=== PATIENT | female | born 1960 | race African-American/Black ===

== ENCOUNTER 2016-12-24 12:51 | Emergency (ER) | payer MEDICAID ==
[~2016-12-24] VITALS: Ht 157.5 cm; Wt 108.9 kg
[~2016-12-24 12:51] MED LIST: ACETAMINOPHEN-1 EAC1 ORAL; ALBUTEROL SULF8.5 GM INH; ALBUTEROL2.5 MG/3 M INH; AMLODIPINE BESY10 MG ORAL; ASPIR 8181 MG ORAL; AZITHROMYCIN250 MG ORAL; BENAZEPRIL HCL40 MG ORAL; BENTYL10 MG ORAL; GABAPENTIN600 MG ORAL; GLUCOTROL10 MG ORAL; HYDROCHLOROTHIA25 MG ORAL; IBUPROFEN600 MG ORAL; LANTUS SOL100 UNIT/1 SUBQ; NAPROXEN500 M2 ORAL; ROBITUSSIN DM5 ML ORAL; TRUSOPT10 ML BOTH EYES; TURMERIC 450-51 EACH PO; VALIUM2 MG ORAL; [UNRECOGNIZED DRUG - SUPPLY]
--- NOTE | 2016-12-24 14:28 | Emergency Room Report ---
History of Present Illness General Chief Complaint: Flu Like Symptoms Source: Patient Present Illness HPI 56-year-old female presents to emergency Department complaining of productive cough with fevers and chills x2 weeks. Patient reports a history of bronchitis denies history of asthma, COPD or smoking history. Patient denies any compromise or other pertinent medical history. Patient denies recent travel she reports multiple ill contacts who were diagnosed with pneumonia. Patient is up-to-date with vaccinations. Denies CP, Palpitations, LOC, AMS, dizziness, Changes in Vision, Sensation, paresthesias, or a sudden severe headache. Allergies: Coded Allergies: No Known Allergies (Unverified , 11/23/15) Patient History Past Medical History: see triage record Past Surgical History: none Pertinent Family History: none Last Menstrual Period: 2003 Now: No Immunizations: UTD Reviewed Nursing Documentation: PMH: Agreed, PSxH: Agreed Nursing Documentation-PMH Past Medical History: No History, Except For Hx Hypertension: Yes Hx Pacemaker: No Hx Asthma: No Hx COPD: No Hx Diabetes: Yes Hx Cerebrovascular Accident: No Review of Systems All Other Systems: negative except mentioned in HPI Physical Exam Vital Signs Date Time Temp Pulse Resp B/P Pulse Ox O2 Delivery O2 Flow Rate FiO2 12/24/16 13:54 99.0 102 18 113/80 94 Room Air Sp02 EP Interpretation: reviewed, abnormal - pt. tachycardic at 102, and oxygenating at 94% General Appearance: no apparent distress, alert, GCS 15, non-toxic Head: normocephalic, atraumatic Eyes: bilateral eye PERRL, bilateral eye normal inspection ENT: hearing grossly normal, normal pharynx, no angioedema, normal voice Neck: full range of motion, supple/symm/no masses Respiratory: no rhonchi, no accessory muscle use, wheezing, other - pt. has difficult time speaking full sentences, audible wheezes, and mild respiratory effort noted. Cardiovascular #1: regular rate, rhythm, no edema, normal capillary refill, tachycardia - 102 BPM Gastrointestinal: normal bowel sounds, non tender, soft, no guarding, no rebound Rectal: deferred Genitourinary: normal inspection, no CVA tenderness Musculoskeletal: back normal, gait/station normal, normal range of motion, non- tender, no calf tenderness Neurologic: alert, oriented x3, responsive, motor strength/tone normal, sensory intact, speech normal Psychiatric: judgement/insight normal, memory normal, mood/affect normal, no suicidal/homicidal ideation Skin: normal color, no rash, warm/dry, well hydrated Lymphatic: no adenopathy Medical Decision Making PA Attestation Dr. Davenport is my supervising Physician whom patient management has been discussed with. Diagnostic Impression: Primary Impression: Atypical pneumonia ER Course 56-year-old female presents to emergency Department complaining of productive cough with fevers and chills x2 weeks. Patient reports a history of bronchitis denies history of asthma, COPD or smoking history. Patient denies any compromise or other pertinent medical history. Patient denies recent travel she reports multiple ill contacts who were diagnosed with pneumonia. Patient is up-to-date with vaccinations. Ddx considered but are not limited to URI, pneumonia, PE, strep pharyngitis, meningitis. Vital signs: Pt. is afebrile, the remaining VS are WNL, pt. mildly tachycardic. H&PE are most consistent with URI- suspicious for pneumonia due to ill contacts, will do breathing tx and cxr. ORDERS: -CXR: No consolidation, effusion, pneumothorax or acute cardiopulmonary findings per soft read in ED by Dr. Davenport. ED INTERVENTIONS: -Albuterol Nebulized tx. -Atrovent Nebulized. Significant improvement of breath sounds, oxygen saturation s/p nebs. no longer tachycardic. DISCHARGE: At this time pt. is stable for d/c to home. Will provide printed patient care instructions, and any necessary prescriptions. Care plan and follow up instructions have been discussed with the patient prior to discharge. Last Vital Signs Date Time Temp Pulse Resp B/P Pulse Ox O2 Delivery O2 Flow Rate FiO2 12/24/16 13:54 99.0 102 18 113/80 94 Room Air Disposition: HOME, SELF-CARE Condition: Stable Scripts Azithromycin* (ZITHROMAX*) 250 Mg Tablet 250 MG ORAL DAILY, #6 TAB 0 Refills Take two tables once daily for 1 day, then one tablet once daily for 4 days. Prov: Verena Kirk P.ASusan 12/24/16 Guaifenesin (Guaifenesin) 1,200 Mg Tab.er.12h 1200 MG PO BID for 10 Days, #20 TAB Prov: Verena Kirk P.ASusan 12/24/16 Albuterol Sulfate* (ALBUTEROL SULFATE MDI*) 8.5 Gm Hfa.aer.ad 2 PUFF INH Q4H, #1 INH 0 Refills Prov: Verena Kirk 12/24/16 Codeine/Promethazine Hcl* (PROMETHAZINE-CODEINE SYRUP*) 118 Ml Syrup 5 ML ORAL Q6H Y for For Cough, #118 ML 0 Refills Prov: Verena Kirk 12/24/16 Referrals: NOT CHOSEN IPA/,REFERRING (PCP) Patient Instructions: Acute Bronchitis, [id number] Additional Instructions: Take medications as directed. Follow up with PCP in 3-5 days Return sooner to ED if new symptoms occur, or current symptoms become worse. Do not drink alcohol, drive, or operate heavy machinery while taking Cough syrup as this may cause drowsiness. - Please note that this Emergency Department Report was dictated using [employer] communications engineer technology software, occasionally this can lead to erroneous entry secondary to interpretation by the dictation equipment. Verena Kirk Dec 24, 2016 14:28
[2016-12-24] MEDS ORDERED: Ipratropium 0.02% Inh Soln 2.5ml UD HHN ONE (14:30)
[2016-12-24] MEDS ORDERED: Albuterol ud Inhalation HHN ONE (14:30)
[2016-12-24 15:04] VITALS: BP 113/80
--- NOTE | 2016-12-24 15:09 | Diagnostic Imaging Report ---
Indication: Chest Pain Comparison: 10/22/16 A single view chest radiograph was obtained. Findings: No definite infiltrate or pulmonary vascular congestion identified. Surgical clips noted left of the trachea at the thoracic inlet. The heart is enlarged. The aorta is mildly enlarged consistent with atherosclerotic vascular disease. The bones are osteopenic. Impression: No acute disease
[2016-12-24] MEDS ORDERED: PROMETHAZINE-C118 M1 ORAL (15:20)
[2016-12-24] MEDS ORDERED: GUAIFENESIN1200 MG PO (15:20)
[2016-12-24] MEDS ORDERED: ALBUTEROL SULF8.5 GM INH (15:20)
[2016-12-24 15:34] VITALS: BP 113/80
[2016-12-24] MEDS ORDERED: ZITHROMAX250 MG ORAL (15:34)
== END 2016-12-24 15:35 | disposition home or self-care (01) ==
LOC: EMR 14:20
DX: J18.9 Pneumonia, unspecified organism (principal); I10 Essential (primary) hypertension; E11.9 Type 2 diabetes mellitus without complications
CPT/HCPCS: 71010; 94640; 94664; 99284

== ENCOUNTER 2019-09-20 21:51 | Emergency (ER) | payer MEDICAID ==
[~2019-09-20] VITALS: Ht 157.5 cm; Wt 113.4 kg
[~2019-09-20 21:51] MED LIST changes: +GUAIFENESIN1200 MG PO; +PROMETHAZINE-C118 M1 ORAL; +ZITHROMAX250 MG ORAL
[2019-09-20] MEDS ORDERED: GLUCOPHAGE1000 MG ORAL (22:01)
[2019-09-20] MEDS ORDERED: LEVOXYL137 MCG ORAL (22:01)
[2019-09-20] MEDS ORDERED: MELOXICAM15 MG PO (22:01)
[2019-09-20] MEDS ORDERED: BENAZEPRIL HCL5 MG ORAL (22:01)
[2019-09-20 22:20] VITALS: BP 150/96
--- NOTE | 2019-09-20 22:20 | NUR ---
ER Nurse Note: Pt walked in c/o RT sided body pain s/p fall. Pt stated her RT knee and shoulder has the most pain, 10/10 pain. Pt stated she has a history of falls and bilateral knee surgery in the past. Pt denies head trauma; skin intact, RA. Will continue to montior .
--- NOTE | 2019-09-20 22:28 | Emergency Room Report ---
History of Present Illness General Chief Complaint: Pain Source: Patient, Medical Record Present Illness HPI Disclaimer: Please note that this report is being documented using [employer] technology. This can lead to erroneous entry secondary to incorrect interpretation by the dictating instrument. HPI: 59-year-old female with a history of bilateral knee replacements, hypertension, hyperlipidemia, diabetes presents for evaluation of right-sided knee and shoulder pain after a fall. The patient states that she has had instability in the right knee for several months now. She is being evaluated by her PMD who is sending her for an outpatient MRI has been giving her lidocaine patches and meloxicam for pain management. She ambulates with a cane. She had a slip after her knee buckled today but did not strike her head. She notes pain in the right shoulder, some of which has been chronic but was acutely worsened today by the fall. Denies any numbness or tingling in the leg or the arm. Denies weakness. Notes worsening pain over the right knee as well without new swelling. Denies any new back pain, chest pain, abdominal pain. Does not take blood thinners. PMH: Hypothyroidism, hypertension, hyperlipidemia, obesity, diabetes PSH: Total bilateral knee replacements, cervical spine fusion, thyroidectomy, hysterectomy, multiple hernia repairs Allergies: Denies Social Hx: Regular tobacco use, denies alcohol or drug use Allergies: Coded Allergies: No Known Allergies (Unverified , 11/23/15) Nursing Documentation-PMH Past Medical History: No History, Except For Hx Hypertension: Yes Hx Pacemaker: No Hx Asthma: No Hx COPD: No Hx Diabetes: Yes Hx Cerebrovascular Accident: No Review of Systems All Other Systems: negative except mentioned in HPI Physical Exam Vital Signs Date Time Temp Pulse Resp B/P (MAP) Pulse Ox O2 Delivery O2 Flow Rate FiO2 09/20/19 21:54 98.1 77 18 150/96 (114) 93 Room Air General: Awake and alert, no acute distress HEENT: NC/AT. EOMI. Chest Wall: No tenderness, no deformity Cardiovascular: RRR. S1 and S2 normal. No murmur appreciated Resp: Normal work of breathing. No cough, wheezing or crackles appreciated Abdomen: Abdomen is soft, nondistended. Nontender Skin: Intact. No abrasions, laceration or rash over the exposed skin MSK: Normal tone and bulk. Moving all extremities. No obvious deformity. There is tenderness on active and passive range of motion testing in the right upper extremity with abduction greater than 90 degrees though able to tolerate internal/external rotation as well as flexion extension pronation and supination in the elbow. No obvious deformity. No clinical signs of dislocation. The right knee is tender over the patella but patella is in anatomic position. No significant effusion. Neuro: Awake and alert. Mentating appropriately. Back/Spine: No midline tenderness in the cervical spine. Medical Decision Making Diagnostic Impression: Primary Impression: Contusion Additional Impressions: Knee contusion Recurrent knee instability ER Course 59-year-old female presents for evaluation of right-sided knee and shoulder pain after a fall earlier today. She has been having some instability in the right prosthetic knee for several months now and has scheduled an MRI as an outpatient. We will obtain x-rays of the right shoulder and right knee to rule out periprosthetic fracture and possible fracture dislocation in the shoulder however clinically I have low suspicion. Will treat pain with Toradol and lidocaine patch. Can follow-up as an outpatient if there are no acute findings on imaging. Other X-Ray Diagnostic Results Other X-Ray Diagnostic Results #1: X-Ray ordered: Right knee # of Views/Limited Vs Complete: Complete Indication: Pain EP Interpretation: Yes Interpretation: no dislocation, no soft tissue swelling, no fractures, other - Total prosthetic knee, no periprosthetic fracture Impression: Other - No periprosthetic fracture, hardware appears in appropriate position Electronically Signed by: Electronically signed by Dr. Ernst Alas Other X-Ray Diagnostic Results #2: X-Ray ordered: Right shoulder # of Views/Limited Vs Complete: 3 View Indication: Pain EP Interpretation: Yes Interpretation: no dislocation, no soft tissue swelling, no fractures, other - Osteoarthritic changes Impression: No acute disease Electronically Signed by: Electronically signed by Dr. Ernst Alas Reevaluation Time: 00:41 Last Vital Signs Date Time Temp Pulse Resp B/P (MAP) Pulse Ox O2 Delivery O2 Flow Rate FiO2 09/20/19 21:54 98.1 77 18 150/96 (114) 93 Room Air Reevaluation Impression Preliminary read by the radiologist shows a questionable ligamentous injury/ remote avulsion fracture but no evidence of acute fracture dislocation or periprosthetic injury. There is also a questionable right sided hilar enlargement which can be followed up as an outpatient. Patient states she has a history of obstructive sleep apnea and pulmonary hypertension may be a consequence of GERBER. Patient was given copies of her imaging to discuss with her PMD. She will be discharged to continue using her medication as prescribed. She should follow-up with her PMD to discuss emergency department visit. Discussed reasons to return to the emergency department as well. She understands and agrees with this treatment plan. Disposition: HOME, SELF-CARE Condition: Stable Ernst Alas MD Sep 20, 2019 22:28
[2019-09-20] MEDS ORDERED: Ketorolac 30mg Inj IM ONE (22:30)
--- NOTE | 2019-09-20 23:17 | NUR ---
ER Nurse Note: All orders completed per ERMD orders; pt states pain is decreased but still there. Lido patch on RT shoulder.
--- NOTE | 2019-09-21 00:18 | Diagnostic Imaging Report ---
Indication: Right shoulder pain COMPARISON: None Findings: 3 views of the right shoulder were obtained. No acute fracture or malalignment identified. There is evidence of osteoarthritis with glenohumeral joint osteophyte formation. Small 2 mm ossific density in the area of the superior glenoid nonspecific. IMPRESSION: No acute injury.
--- NOTE | 2019-09-21 00:26 | Diagnostic Imaging Report ---
Indication: Right knee Pain 3 views of the right knee were obtained. Findings: No acute fracture, malalignment, or joint effusion are identified. Total knee arthroplasty noted. Bones are osteopenic. Impression: Negative for acute findings.
[2019-09-21 00:32] VITALS: BP 146/88
--- NOTE | 2019-09-21 00:33 | NUR ---
ER Nurse Note: Pt asleep, no signs of pain and discomfort. Awaiting further orders. All safety measures met; will continue to monitor.
[2019-09-21 00:55] VITALS: BP 146/88
--- NOTE | 2019-09-21 00:55 | NUR ---
ER Nurse Note: Pt seen, treated, cleared to be discharged per ERMD. Dicharge instructions given with repeat verbalization by pt. Encouraged pt follow up with primary care doctor within one week. Pt is aox4, on room air, with stable vital signs. id band and iv site removed without complications. pt is able to ambulate with steady gait. pt took all belongings.
== END 2019-09-21 00:55 | disposition home or self-care (01) ==
LOC: EMR 22:30
DX: S80.01XA Contusion of right knee, initial encounter (principal); I10 Essential (primary) hypertension; E11.9 Type 2 diabetes mellitus without complications; E03.9 Hypothyroidism, unspecified; E78.5 Hyperlipidemia, unspecified; W01.0XXA Fall on same level from slipping, tripping and stumbling without subsequent striking against object, initial encounter; Y93.9 Activity, unspecified; Y92.9 Unspecified place or not applicable; Z96.653 Presence of artificial knee joint, bilateral; Z90.710 Acquired absence of both cervix and uterus; Z98.890 Other specified postprocedural states
CPT/HCPCS: 73030; 73562; 96372; J1885; Z7502; 99284

== ENCOUNTER 2020-05-30 14:07 | Emergency (ER) | payer MEDICAID ==
[~2020-05-30] VITALS: Ht 157.5 cm; Wt 257.2 kg
[~2020-05-30 14:07] MED LIST changes: +BENAZEPRIL HCL5 MG ORAL; +GLUCOPHAGE1000 MG ORAL; +LEVOXYL137 MCG ORAL; +MELOXICAM15 MG PO
[2020-05-30 15:05] VITALS: BP 149/88
[2020-05-30] MEDS ORDERED: HYDROcodone/Acetamin 5/325 tab ORAL ONE (15:15)
--- NOTE | 2020-05-30 15:23 | Emergency Room Report ---
History of Present Illness General Chief Complaint: Pain Source: Patient Present Illness HPI 60-year-old female presents to the emergency department with 2 complaints. The first being 10 out of 10 severity pain to the left fourth toe x1 week. Patient states she is not sure whether or not she had any trauma as she has history of neuropathy. Patient reports swelling and bruising. She denies warmth or notable open wounds. Patient reports pain is exacerbated upon palpation and weightbearing. Patient is also complaining of 6 out of 10 severity left shoulder pain with acute onset since yesterday. Patient reports she was reaching behind her back when she felt a pop in her left shoulder and had acute onset of pain. Patient denies muscular weakness in that extremity however she reports pain with lifting her arm or palpation of the left shoulder. Patient reports history of rotator cuff and tendon injury which did require surgical intervention as well as non-cancerous mass removal from the left axilla and breast. Patient reports history of diabetes. She denies fevers or chills. Patient denies paresthesias in the upper extremities. No other aggravating or relieving factors at this time. She denies midline neck or back pain. Allergies: Coded Allergies: No Known Allergies (Unverified , 11/23/15) COVID-19 Screening Contact w/high risk pt: No Experienced COVID-19 symptoms?: No COVID-19 Testing performed WAFER SLICER: No Patient History Past Medical History: see triage record, DM Past Surgical History: other - mass removal, rotator cuff repair, tendon repair bilateral shoulders. Pertinent Family History: none Last Menstrual Period: na Reviewed Nursing Documentation: PMH: Agreed; PSxH: Agreed Nursing Documentation-PMH Past Medical History: No History, Except For Hx Hypertension: Yes Hx Pacemaker: No Hx Asthma: No Hx COPD: No Hx Diabetes: Yes Hx Cerebrovascular Accident: No Review of Systems All Other Systems: negative except mentioned in HPI Physical Exam Vital Signs Date Time Temp Pulse Resp B/P (MAP) Pulse Ox O2 Delivery O2 Flow Rate FiO2 05/30/20 14:33 98.8 73 17 157/100 (119) 98 Room Air Sp02 EP Interpretation: reviewed, normal General Appearance: no apparent distress, alert, GCS 15, non-toxic Head: normocephalic, atraumatic Eyes: bilateral eye normal inspection, bilateral eye PERRL ENT: hearing grossly normal, normal voice Neck: full range of motion Respiratory: lungs clear, normal breath sounds, speaking full sentences Cardiovascular #1: regular rate, rhythm Musculoskeletal: normal range of motion, gait/station normal, tender - Left shoulder posteriorly and along the AC joint. No clicking with ROM, pain with ROM , NVI. no obvious step-off, no cervical or midline spinal tenderness, swelling - Left 4th toe, bruising noted, no warmth, no obvious deformity. Tender on palpation. Neurologic: alert, motor strength/tone normal, oriented x3, sensory intact, responsive, speech normal Psychiatric: judgement/insight normal Skin: Ecchymosis/Bruising - left 4th Toe Medical Decision Making PA Attestation Dr. Elias is my supervising Physician whom patient management has been discussed with. Diagnostic Impression: Primary Impression: Toe fracture, left Qualified Codes: S92.912A - Unspecified fracture of left toe(s), initial encounter for closed fracture Additional Impression: Shoulder pain with history of repair of rotator cuff ER Course 60-year-old female presents to the emergency department with 2 complaints. The first being 10 out of 10 severity pain to the left fourth toe x1 week. Patient states she is not sure whether or not she had any trauma as she has history of neuropathy. Patient reports swelling and bruising. She denies warmth or notable open wounds. Patient reports pain is exacerbated upon palpation and weightbearing. Patient is also complaining of 6 out of 10 severity left shoulder pain with acute onset since yesterday. Patient reports she was reaching behind her back when she felt a pop in her left shoulder and had acute onset of pain. Patient denies muscular weakness in that extremity however she reports pain with lifting her arm or palpation of the left shoulder. Patient reports history of rotator cuff and tendon injury which did require surgical intervention as well as non-cancerous mass removal from the left axilla and breast. Patient reports history of diabetes. She denies fevers or chills. Patient denies paresthesias in the upper extremities. No other aggravating or relieving factors at this time. She denies midline neck or back pain. Ddx considered but are not limited to Fracture, dislocation, contusion, Sprain/ Strain/Spasm, cellulitis, ligament/tendon/soft tissue tear/injury. Vital signs: are WNL, pt. is afebrile H&PE are most consistent with musculoskeletal injury will perform imaging to r/ o fractures/dislocations. ORDERS: - X-ray Left Shoulder 3 views. - negative for fx, Dislocation, or significant soft tissue injury, per preliminary read in ED, and signed by MARIBELL Kirk , my supervising physician has reviewed, and agrees with my interpretation. - X-Ray left toes 3 views : --suspicious for small fracture of the proximal phalanx of the left 4th toe. ED INTERVENTIONS: - [place] PO - Lidoderm TP -Left arm Sling applied by guitar repair technician. Pt. remains neurovascularly intact. Left cast/walking shoe splint applied by ED RN. remains neurovascularly intact. DISCHARGE: At this time pt. is stable for d/c to home. Will provide printed patient care instructions, and any necessary prescriptions. Care plan and follow up instructions have been discussed with the patient prior to discharge. Other X-Ray Diagnostic Results Other X-Ray Diagnostic Results #1: X-Ray ordered: Left Toes # of Views/Limited Vs Complete: 3 View Indication: Pain EP Interpretation: Yes MARIBELL Xray: Interpretation reviewed, by supervising MD Interpretation: no dislocation, no soft tissue swelling, other - suspicious for small fracture of the proximal phalanx of the left 4th toe. Impression: Other - abnormal Electronically Signed by: Verena Kirk PA-C Other X-Ray Diagnostic Results #2: X-Ray ordered: Left Shoulder # of Views/Limited Vs Complete: 3 View Indication: Pain EP Interpretation: Yes MARIBELL Xray: Interpretation reviewed, by supervising MD, and agrees with findings. Interpretation: no dislocation, no soft tissue swelling Impression: No acute disease Electronically Signed by: Verena Kirk PA-C Last Vital Signs Date Time Temp Pulse Resp B/P (MAP) Pulse Ox O2 Delivery O2 Flow Rate FiO2 05/30/20 14:33 98.8 73 17 157/100 (119) 98 Room Air Status: improved Disposition: HOME, SELF-CARE Condition: Stable Scripts Methocarbamol* (ROBAXIN-500*) 500 Mg Tablet 500 MG ORAL QID PRN for For Pain for 7 Days, #35 TAB 0 Refills Prov: Verena Kirk 05/30/20 Referrals: Kamaljit Cantor M.D. (PCP) Patient Instructions: Shoulder Pain, [id number], Toe Fracture, [id number] Additional Instructions: Take medications as directed. Do not drink alcohol, drive, or operate heavy machinery while taking [place] as this may cause drowsiness. Follow up with an HUMAN SERVICES INSTRUCTOR in 3-5 days, even if your symptoms have resolved. If symptoms persist MRI may be required at the discretion of your PCP or Ortho Specialist. Return sooner to ED if new symptoms occur, or current symptoms become worse. - Please note that this Emergency Department Report was dictated using [employer] machine service repairer technology software, occasionally this can lead to erroneous entry secondary to interpretation by the dictation equipment. Verena Kirk May 30, 2020 15:23
[2020-05-30] MEDS ORDERED: HYDROCODON-ACE1 EA18 PO (16:14)
[2020-05-30] MEDS ORDERED: ROBAXIN-500MG ORAL (16:37)
--- NOTE | 2020-05-30 16:43 | Diagnostic Imaging Report ---
EXAM: X-RAY XRAY Shoulder Compl L CLINICAL HISTORY: Shoulder pain. COMPARISON: None FINDINGS: Total of 3 views of the left shoulder were obtained. There are total 3 radiographs of the left shoulder obtained. Two are internal rotation views and there is a Y view. There is no external rotation view. On the internal rotation view, there is questionable cortical step-off at the humeral neck. This is not confirmed on the Y-view. No other definite fracture seen. Joint spaces are unremarkable. Surrounding soft tissue is normal. IMPRESSION: QUESTIONABLE CORTICAL STEP-OFF OF THE HUMERAL NECK SEEN ON THE INTERNAL ROTATION VIEW BUT NOT CONFIRMED ON THE Y-VIEW. CONSIDER CORRELATION WITH CT.
--- NOTE | 2020-05-30 16:44 | Diagnostic Imaging Report ---
EXAM: X-RAY XRAY Toes 3v L CLINICAL HISTORY: Toe pain. COMPARISON: None FINDINGS: Total of 3 views of the left toes were obtained. Alignment is anatomic. There is no fracture, bony lesions or erosions. Joint spaces are unremarkable. Surrounding soft tissue is normal. IMPRESSION: NO FRACTURE.
[2020-05-30 16:45] VITALS: BP 144/82
== END 2020-05-30 16:45 | disposition home or self-care (01) ==
LOC: EMR 14:50
DX: S92.912A Unspecified fracture of left toe(s), initial encounter for closed fracture (principal); M25.512 Pain in left shoulder; E11.40 Type 2 diabetes mellitus with diabetic neuropathy, unspecified; I10 Essential (primary) hypertension; X58.XXXA Exposure to other specified factors, initial encounter; Y92.9 Unspecified place or not applicable
CPT/HCPCS: 73030; 73660; Z7502; 99284

== ENCOUNTER 2020-09-04 16:28 | Emergency (ER) | payer MEDICAID ==
[~2020-09-04] VITALS: Ht 157.5 cm; Wt 126.1 kg
[~2020-09-04 16:28] MED LIST changes: +HYDROCODON-ACE1 EA18 PO; +ROBAXIN-500MG ORAL
--- NOTE | 2020-09-04 16:59 | Emergency Room Report ---
History of Present Illness General Chief Complaint: General Complaint Source: Patient Present Illness HPI Patient is a 60-year-old female past medical history of obesity and status post right shoulder surgery on June 15, 2020 who presents to the ER complaining of right shoulder pain. Patient states that she had a surgery done at an outside facility. Patient states that since her surgery she has had more pain than before her surgery. Patient states that she was told by her orthopedist that she had a fracture. Patient states that she has been on Sharon, Tylenol fours, Robaxin and other pain medicine. She denies any chest pain or shortness of breath. She denies any focal weakness. She denies any fever or chills. She denies any new trauma. 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 Patient History Reviewed Nursing Documentation: PMH: Agreed; PSxH: Agreed Nursing Documentation-PMH Past Medical History: No History, Except For Hx Hypertension: Yes Hx Pacemaker: No Hx Asthma: Yes Hx COPD: No Hx Diabetes: Yes Hx Cerebrovascular Accident: No Review of Systems All Other Systems: negative except mentioned in HPI Physical Exam Vital Signs Date Time Temp Pulse Resp B/P (MAP) Pulse Ox O2 Delivery O2 Flow Rate FiO2 09/04/20 16:35 97.2 86 19 147/91 (109) 97 Room Air Sp02 EP Interpretation: reviewed, normal General Appearance: no apparent distress, alert, GCS 15, non-toxic Head: normocephalic, atraumatic Eyes: bilateral eye normal inspection, bilateral eye PERRL ENT: hearing grossly normal, normal pharynx, no angioedema, normal voice Neck: full range of motion, supple/symm/no masses Respiratory: chest non-tender, lungs clear, normal breath sounds, speaking full sentences Cardiovascular #1: regular rate, rhythm, no edema Cardiovascular #2: 2+ radial (R), 2+ radial (L) Gastrointestinal: normal bowel sounds, non tender, soft, non-distended, no guarding, no rebound Rectal: deferred Musculoskeletal: other - Right shoulder and upper arm diffuse tenderness to palpation with some swelling healed surgical incision site with no erythema or crepitus. 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 Due to a high probability of clinically significant, life threatening deterioration, the patient required my highest level of preparedness to intervene emergently and I personally spent this critical care time directly and personally managing the patient. This critical care time included obtaining a history; examining the patient; pulse oximetry; ordering and review of studies; arranging urgent treatment with development of a management plan; evaluation of patient's response to treatment; frequent reassessment; and, discussions with other providers.This critical care time was performed to assess and manage the high probability of imminent, life- threatening deterioration that could result in multi-organ failure. It was exclusive of separately billable procedures and treating other patients and teaching time. Please see MDM section and the rest of the note for further information on patie nt assessment and treatment. Medical Decision Making Diagnostic Impression: Primary Impression: DVT (deep venous thrombosis) Additional Impression: Leukocytosis ER Course Patient's ultrasound positive for DVT. Patient has been started on heparin. Patient given bolus and started on a drip. Patient's labs demonstrate mild leukocytosis. Otherwise patient's vital signs have been stable. She is stable for transfer to [facility]. Laboratory Tests Test 09/04/20 19:20 White Blood Count 11.9 K/UL (4.8-10.8) H Red Blood Count 4.84 M/UL (4.20-5.40) Hemoglobin 13.4 G/DL (12.0-16.0) Hematocrit 43.0 % (37.0-47.0) Mean Corpuscular Volume 89 FL (80-99) Mean Corpuscular Hemoglobin 27.7 PG (27.0-31.0) Mean Corpuscular Hemoglobin Concent 31.2 G/DL (32.0-36.0) L Red Cell Distribution Width 14.6 % (11.6-14.8) Platelet Count 342 K/UL (150-450) Mean Platelet Volume 6.5 FL (6.5-10.1) Neutrophils (%) (Auto) 66.7 % (45.0-75.0) Lymphocytes (%) (Auto) 21.5 % (20.0-45.0) Monocytes (%) (Auto) 6.6 % (1.0-10.0) Eosinophils (%) (Auto) 3.5 % (0.0-3.0) H Basophils (%) (Auto) 1.7 % (0.0-2.0) Prothrombin Time 10.7 SEC (9.30-11.50) Prothrombin Time INR 1.0 (0.9-1.1) Activated Partial Thromboplast Time 24 SEC (23-33) Sodium Level 140 MMOL/L (136-145) Potassium Level 3.8 MMOL/L (3.5-5.1) Chloride Level 103 MMOL/L (98-107) Carbon Dioxide Level 32 MMOL/L (21-32) Anion Gap 5 mmol/L (5-15) Blood Urea Nitrogen 11 mg/dL (7-18) Creatinine 1.0 MG/DL (0.55-1.30) Estimated Glomerular Filtration Rate > 60 mL/min (>60) Glucose Level 115 MG/DL (74-106) H Calcium Level 8.7 MG/DL (8.5-10.1) Magnesium Level 1.9 MG/DL (1.8-2.4) Total Bilirubin 0.2 MG/DL (0.2-1.0) Aspartate Amino Transferase (AST) 21 U/L (15-37) Alanine Aminotransferase (ALT) 23 U/L (12-78) Alkaline Phosphatase 134 U/L (46-116) H Troponin I 0.016 ng/mL (0.000-0.056) Total Protein 7.6 G/DL (6.4-8.2) Albumin 3.4 G/DL (3.4-5.0) Globulin 4.2 g/dL Albumin/Globulin Ratio 0.8 (1.0-2.7) L EKG Diagnostic Results Troponin ordered: Yes When was troponin ordered?: Sep 04, 2020 EKG Time: 19:16 EP Interpretation: Bonita Rojas MD Rate: normal - 70 bpm Rhythm: NSR ST Segments: no acute changes ASA given to the pt in ED: No Rhythm Strip Diag. Results Rhythm Strip Time: 19:33 EP Interpretation: yes - Bonita Rojas MD Rate: 83 bpm Rhythm: NSR, no PVC's, no ectopy Chest X-Ray Diagnostic Results Chest X-Ray Diagnostic Results : Chest X-Ray Ordered: Yes # of Views/Limited/Complete: 1 View Indication: Other - DVT EP Interpretation: Yes Interpretation: no consolidation, no effusion, no pneumothorax, no acute cardiopulmonary disease Impression: No acute disease Electronically Signed by: Bonita Rojas MD Other X-Ray Diagnostic Results Other X-Ray Diagnostic Results #1: X-Ray ordered: Right shoulder # of Views/Limited Vs Complete: 3 View Indication: Pain EP Interpretation: Yes Interpretation: no dislocation, no fractures, other - No foreign body Impression: No acute disease Electronically Signed by: Bonita Rojas MD Other X-Ray Diagnostic Results #2: X-Ray ordered: Right humerus # of Views/Limited Vs Complete: 2 View Indication: Pain EP Interpretation: Yes Interpretation: no dislocation, no fractures, other - No foreign body Impression: No acute disease Electronically Signed by: Bonita Rojas MD Last Vital Signs Date Time Temp Pulse Resp B/P (MAP) Pulse Ox O2 Delivery O2 Flow Rate FiO2 09/04/20 16:35 97.2 86 19 147/91 (109) 97 Room Air Disposition: ADMITTED INPATIENT - Transfer to [facility] Condition: Critical Physician Consult: Dr Jos MD transferred to [facility] Additional Instructions: Please note that this report is being documented using [employer] technology. This can lead to erroneous entry secondary to incorrect interpretation by the dictating instrument. Bonita Rojas M.D. Sep 04, 2020 16:59
[2020-09-04] MEDS ORDERED: oxyCODONE HCL/Acetaminophen 5/325mg ORAL ONE (17:00)
--- NOTE | 2020-09-04 17:39 | Diagnostic Imaging Report ---
History: PAIN Exam: XR RIGHT SHOULDER 3 views Comparison: FINDINGS: Status post right shoulder replacement. Hardware appears within limits. No evidence of fracture or dislocation identified. IMPRESSION: Status post right shoulder replacement. Hardware appears within limits. No evidence of fracture or dislocation identified.
--- NOTE | 2020-09-04 17:42 | Diagnostic Imaging Report ---
History: PAIN Exam: XR RIGHT HUMERUS 2 views Comparison: None available FINDINGS/IMPRESSION: No fracture.
--- NOTE | 2020-09-04 18:21 | Diagnostic Imaging Report ---
History: PAIN Exam: US VENOUS RIGHT UPPER EXTREMITY Comparison: None available FINDINGS/IMPRESSION: Occlusive-appearing DVT is seen at the proximal right brachial vein. The mid to distal right brachial vein appears patent. No other site of DVT identified in the right upper extremity. <MYCVCSECTION> Communications: 09/04/20 18:28 Verify Receipt Verified receipt with YUKO Greenwood in the Er for MD EVANGELINA on 09/04 18:28 (-08:00)
[2020-09-04] MEDS ORDERED: fentaNYL 100 mcg/2 mL IV ONE (19:15)
[2020-09-04 19:25] VITALS: BP 147/91
[2020-09-04] MEDS ORDERED: Omnipaque 350 100ml vial INJ PRN (19:30)
[2020-09-04 19:52] LABS: ANION GAP 5 mmol/L (5-15); BLOOD UREA NITROGEN 11 mg/dL (7-18); CALCIUM 8.7 MG/DL (8.5-10.1); CARBON DIOXIDE 32 MMOL/L (21-32); CHLORIDE 103 MMOL/L (98-107); POTASSIUM 3.8 MMOL/L (3.5-5.1); SODIUM 140 MMOL/L (136-145)
[2020-09-04 19:55] LABS: BASOPHILS % (AUTO) 1.7 % (0.0-2.0); EOSINOPHILS % (AUTO) 3.5 % (0.0-3.0); HEMOGLOBIN 13.4 G/DL (12.0-16.0); LYMPHOCYTES % (AUTO) 21.5 % (20.0-45.0); MEAN CORPUSCULAR VOLUME 89 FL (80-99); MONOCYTES % (AUTO) 6.6 % (1.0-10.0); NEUTROPHILS % (AUTO) 66.7 % (45.0-75.0); PLATELET COUNT 342 K/UL (150-450); RED BLOOD COUNT 4.84 M/UL (4.20-5.40); RED CELL DISTRIBUTION WIDTH 14.6 % (11.6-14.8); WHITE BLOOD COUNT 11.9 K/UL (4.8-10.8)
[2020-09-04 20:08] LABS: ALANINE AMINOTRANSFERASE 23 U/L (12-78); ALBUMIN 3.4 G/DL (3.4-5.0); ALBUMIN/GLOBULIN RATIO 0.8 (1.0-2.7); ALKALINE PHOSPHATASE 134 U/L (46-116); ASPARTATE AMINO TRANSFERASE 21 U/L (15-37); BILIRUBIN,TOTAL 0.2 MG/DL (0.2-1.0)
--- NOTE | 2020-09-04 20:37 | Diagnostic Imaging Report ---
EXAM: CT Angiography Chest With Intravenous Contrast CLINICAL HISTORY: PE TECHNIQUE: Axial computed tomographic angiography images of the chest with intravenous contrast. CTDI is 160.0 mGy and DLP is 797.5 mGy-cm. One or more of the following dose reduction techniques were used: automated exposure control, adjustment of the mA and/or kV according to patient size, use of iterative reconstruction technique. MIP reconstructed images were created and reviewed. COMPARISON: No relevant prior studies available. FINDINGS: Pulmonary arteries: Unremarkable. No pulmonary embolism. Aorta: No acute findings. No thoracic aortic aneurysm. Lungs: There are a few linear bands of atelectasis predominantly involving the right greater than left basilar lower lobes. Calcified granuloma left lower lobe. No mass. Pleural space: Unremarkable. No significant effusion. No pneumothorax. Heart: Unremarkable. No cardiomegaly. No significant pericardial effusion. No evidence of RV dysfunction. Bones/joints: Mild multilevel degenerative changes of the thoracic spine. No acute fracture. No dislocation. Soft tissues: Unremarkable. Lymph nodes: Unremarkable. No enlarged lymph nodes. IMPRESSION: No acute pulmonary embolism.
[2020-09-04] MEDS ORDERED: Heparin 5000 units/ml inj IV ONE (21:00)
[2020-09-04] MEDS ORDERED: Heparin 25,000u/D5W 500ml 500 ML IV SCH (21:00)
[2020-09-04 22:36] VITALS: BP 148/89
[2020-09-05 01:42] VITALS: BP 148/89
--- NOTE | 2020-09-05 15:55 | Diagnostic Imaging Report ---
Indication: Chest pain Technique: One view of the chest Comparison: 12/24/2016 Findings: The heart is enlarged. Lungs and pleural spaces are clear. The aorta is tortuous and ectatic. There are left neck surgical clips. No significant interim change Impression: Cardiomegaly. No definite acute process
--- NOTE | 2020-09-05 18:13 | Cardiology Report ---
APPROVED REPORT EKG Measurement Heart [id number] <Conclusion> Normal sinus rhythm Moderate voltage criteria for LVH, may be normal variant Nonspecific T wave abnormality Abnormal ECG
== END 2020-09-05 01:43 | disposition short-term general hospital (02) ==
LOC: EMR 17:14
DX: I82.621 Acute embolism and thrombosis of deep veins of right upper extremity (principal); D72.829 Elevated white blood cell count, unspecified; Z96.611 Presence of right artificial shoulder joint; I10 Essential (primary) hypertension; E11.9 Type 2 diabetes mellitus without complications; J45.909 Unspecified asthma, uncomplicated; Z88.5 Allergy status to narcotic agent
CPT/HCPCS: 36415; 71045; 71275; 73030; 73060; 80053; 83735; 84484; 85025; 85610; 85730; 93005; 93971; 96365; 96366; 96375; J1644; J3010; Q9967; Z7502; 99291

== ENCOUNTER 2020-12-11 12:54 | Emergency (ER) | payer SELFPAY ==
[~2020-12-11] VITALS: Ht 157.5 cm; Wt 122.5 kg
[2020-12-11 14:09] VITALS: BP 151/95
--- NOTE | 2020-12-11 15:30 | Diagnostic Imaging Report ---
Indication: Left shoulder pain Technique: 3 views of the left shoulder Comparison: none Findings: No acute fracture. No dislocation. The joint spaces are preserved. Surgical clips are seen in the left side of the neck Impression: Negative
--- NOTE | 2020-12-11 15:33 | Diagnostic Imaging Report ---
Indications: Trauma, status post fall last night Technique: Spiral acquisitions obtained through the lumbar spine. Multiplanar reconstructions were generated. No IV contrast utilized. Total dose length product 1544 mGycm. CTDIvol(s) 25 mGy. Dose reduction achieved using automated exposure control Comparison: none Findings: Bony alignment is normal. Vertebral body heights are preserved. There is lower lumbar facet arthrosis. The disc spaces are preserved. Degenerative vacuum formation is seen at L5-S1. No acute fracture. No dislocation. No significant disc bulge or protrusion, spinal stenosis, or neural foraminal stenosis demonstrated. The included extraspinal soft tissues are unremarkable. There is evidence of prior hysterectomy. Impression: No acute bony trauma Mild degenerative changes, as described The CT scanner at [facility] is accredited by the [employer] and the scans are performed using protocols designed to limit radiation exposure to as low as reasonably achievable to attain images of sufficient resolution adequate for diagnostic evaluation.
--- NOTE | 2020-12-11 15:40 | Diagnostic Imaging Report ---
Indication: Trauma, status post fall last night Technique: Spiral acquisitions obtained through the thoracic spine. No IV contrast utilized. Multiplanar reconstructions were generated. Total dose length product 1544 mGycm. CTDIvol(s) 25 mGy. Dose reduction achieved using automated exposure control Comparison: none Findings: There is very slight loss of height of the anterior aspect of the C6 vertebral body. The remaining vertebral body heights are preserved. The bony alignment is normal. No definite acute fractures. No dislocations. There is multilevel degenerative disc narrowing, including the C5-6 and C6-7 discs. The included extraspinal soft tissues demonstrate atelectatic changes at the lung bases and possibly some scarring and bronchiectasis. There is evidence of prior left thyroidectomy. Impression: Slight loss of height of the anterior aspect of the C6 vertebral body. Suspect that this is on the basis of degenerative remodeling given the presence of surrounding degenerative disc disease, but mild acuity indeterminate compression fracture not completely excludable. Consider MRI for better characterization if this is considered clinically relevant. No acute bony trauma otherwise Degenerative changes as described Evidence of prior left thyroidectomy Basilar pulmonary atelectatic changes The CT scanner at [facility] is accredited by the [employer] and the scans are performed using protocols designed to limit radiation exposure to as low as reasonably achievable to attain images of sufficient resolution adequate for diagnostic evaluation.
--- NOTE | 2020-12-11 15:43 | Diagnostic Imaging Report ---
Indications: Trauma, status post fall last night Technique: Spiral images obtained through the facial bones. No IV contrast utilized. Multiplanar reconstructions were generated.Total dose length product 343 mGycm. CTDIvol(s) 15 mGy. Dose reduction achieved using automated exposure control Comparison: none Findings: No acute fracture. No worrisome sinus air-fluid levels demonstrated. There is evidence of prior bilateral cataract surgery and left optic globe banding. The optic globes are otherwise intact. The retroseptal orbits are intact. The deep facial soft tissues are unremarkable except for evidence of prior left lobe thyroidectomy. The upper aerodigestive tract is unremarkable. There is evidence of multiple prior tooth extractions. Impression: No acute bony trauma The CT scanner at [facility] is accredited by the [employer] and the scans are performed using protocols designed to limit radiation exposure to as low as reasonably achievable to attain images of sufficient resolution adequate for diagnostic evaluation.
--- NOTE | 2020-12-11 15:45 | Diagnostic Imaging Report ---
Indications: Trauma, status post fall last night Technique: Spiral acquisitions obtained through the brain. Angled axial and coronal 5 x 5 mm slices were reconstructed. Total dose length product 1469 mGycm. CTDI vol(s) 68 mGy. Dose reduction achieved using automated exposure control Comparison: None. Findings: No acute intercranial hemorrhage or edema, mass effect, nor midline shift. Normal size ventricles and extra axial CSF spaces. Intact calvarium. The mastoids are clear. Visualized orbits and sinuses are unremarkable. Impression: Negative The CT scanner at [facility] is accredited by the [employer] and the scans are performed using protocols designed to limit radiation exposure to as low as reasonably achievable to attain images of sufficient resolution adequate for diagnostic evaluation.
--- NOTE | 2020-12-11 20:47 | Emergency Room Report ---
History of Present Illness General Chief Complaint: Multiple Trauma/Fall Source: Patient Present Illness HPI 60-year-old female presents for fall and injury. States that early this morning she fell while she was on the toilet because she falls asleep often. States that she hit her head and chin on the floor. Complaining of facial pain, back pain right knee and left shoulder pain. States she has had previous history of back problems. Pain is 10 out of 10, throbbing, nonradiating. No other aggravating relieving factors. Denies any other associated symptoms Allergies: Coded Allergies: TRAMADOL (Verified Allergy, Unknown, 09/04/20) COVID-19 Screening Contact w/high risk pt: No Experienced COVID-19 symptoms?: No COVID-19 Testing performed THIRD GRADE TEACHER: No COVID-19 Screening: Negative COVID-19 COVID-19 Testing Source: nov, tested at [facility] Patient History Past Medical History: DM, HTN, asthma Past Surgical History: none Pertinent Family History: none Social History: Denies: smoking, alcohol use, drug use Now: No Immunizations: UTD Reviewed Nursing Documentation: PMH: Agreed; PSxH: Agreed Nursing Documentation-PMH Past Medical History: No History, Except For Hx Cardiac Problems: Yes - blood clot Hx Hypertension: Yes Hx Pacemaker: No Hx Asthma: Yes Hx COPD: No Hx Diabetes: Yes Hx Cerebrovascular Accident: No Review of Systems All Other Systems: negative except mentioned in HPI Physical Exam Vital Signs Date Time Temp Pulse Resp B/P (MAP) Pulse Ox O2 Delivery O2 Flow Rate FiO2 12/11/20 14:09 98.4 87 18 151/95 (113) 97 Room Air Sp02 EP Interpretation: reviewed, normal General Appearance: no apparent distress, alert, GCS 15, non-toxic, obese Head: normocephalic, atraumatic Eyes: bilateral eye normal inspection, bilateral eye PERRL ENT: hearing grossly normal, normal pharynx, no angioedema, normal voice Neck: full range of motion, supple/symm/no masses Respiratory: chest non-tender, lungs clear, normal breath sounds, speaking full sentences Cardiovascular #1: regular rate, rhythm, no edema Cardiovascular #2: 2+ carotid (R), 2+ carotid (L), 2+ radial (R), 2+ radial (L), 2+ dorsalis pedis (R), 2+ dorsalis pedis (L) Gastrointestinal: normal bowel sounds, non tender, soft, non-distended, no guarding, no rebound Rectal: deferred Genitourinary: normal inspection, no CVA tenderness, vertebral tenderness Musculoskeletal: back normal, normal range of motion, gait/station normal, tender - L shoulder, R knee Neurologic: alert, motor strength/tone normal, oriented x3, sensory intact, responsive, speech normal Psychiatric: judgement/insight normal, memory normal, mood/affect normal, no suicidal/homicidal ideation Reflexes: 3+ bicep (R), 3+ bicep (L), 3+ tricep (R), 3+ tricep (L), 3+ knee (R), 3+ knee (L) Lymphatic: no adenopathy Medical Decision Making Diagnostic Impression: Primary Impression: Back pain Qualified Codes: M54.6 - Pain in thoracic spine Additional Impressions: Head injury Qualified Codes: S09.90XA - Unspecified injury of head, initial encounter Opioid dependence Qualified Codes: F11.29 - Opioid dependence with unspecified opioid-induced disorder ER Course Hospital Course 60-year-old female presents with head pain back pain generalized pain after falling bathroom Differential diagnoses include: Fracture, dislocation, sprain, contusion Clinical course Patient placed on stretcher. After initial history and physical, I ordered the head, facial bone, CT T-spine CT L-spine. X-rays of left shoulder and right knee CT show no acute process X-rays show no acute process Discussed the findings with the patient. Explained that her CT showed no bony injury. She stated that I should not have done a CT and I should have done an MRI. Explained that MRI is not the appropriate imaging modality for injury and trauma. X-ray would be more than sufficient even. Patient became very threatening aggressive and agitated. Was very abrasive to the nurse prior to my evaluation. On a review of EMR patient has been here multiple times and often is complaining and rude to nursing staff and has often requested continued pain meds. Cures shows extensive narcotic prescriptions Patient is requesting discharge at this time Diagnosis - back pain, head injury, opioid dependence Stable and discharged to home. Followup with PMD. Return to ED if symptoms recur or worsen Other X-Ray Diagnostic Results Other X-Ray Diagnostic Results #1: X-Ray ordered: L shoulder # of Views/Limited Vs Complete: 3 View Indication: Pain EP Interpretation: Yes Interpretation: no dislocation, no soft tissue swelling, no fractures Impression: No acute disease Electronically Signed by: Electronically signed by Kevin Bear MD Other X-Ray Diagnostic Results #2: X-Ray ordered: R knee # of Views/Limited Vs Complete: 3 View Indication: Pain EP Interpretation: Yes Interpretation: no dislocation, no soft tissue swelling, no fractures, other - hardware in place Impression: No acute disease Electronically Signed by: Electronically signed by Kevin Bear MD CT/MRI/US Diagnostic Results CT/MRI/US Diagnostic Results #1: Imaging Test Ordered: CT Head Impression Procedure: CT Head no Contrast Indications: Trauma, status post fall last night Technique: Spiral acquisitions obtained through the brain. Angled axial and coronal 5 x 5 mm slices were reconstructed. Total dose length product 1469 mGycm. CTDI vol(s) 68 mGy. Dose reduction achieved using automated exposure control Comparison: None. Findings: No acute intercranial hemorrhage or edema, mass effect, nor midline shift. Normal size ventricles and extra axial CSF spaces. Intact calvarium. The mastoids are clear. Visualized orbits and sinuses are unremarkable. Impression: Negative The CT scanner at [facility] is accredited by the [employer] and the scans are performed using protocols designed to limit radiation exposure to as low as reasonably achievable to attain images of sufficient resolution adequate for diagnostic evaluation. CT/MRI/US Diagnostic Results #2: Imaging Test Ordered: CT Facial Bones Impression Procedure: CT Maxillofacial no Contrast Indications: Trauma, status post fall last night Technique: Spiral images obtained through the facial bones. No IV contrast utilized. Multiplanar reconstructions were generated.Total dose length product 343 mGycm. CTDIvol(s) 15 mGy. Dose reduction achieved using automated exposure control Comparison: none Findings: No acute fracture. No worrisome sinus air-fluid levels demonstrated. There is evidence of prior bilateral cataract surgery and left optic globe banding. The optic globes are otherwise intact. The retroseptal orbits are intact. The deep facial soft tissues are unremarkable except for evidence of prior left lobe thyroidectomy. The upper aerodigestive tract is unremarkable. There is evidence of multiple prior tooth extractions. Impression: No acute bony trauma The CT scanner at [facility] is accredited by the [employer] and the scans are performed using protocols designed to limit radiation exposure to as low as reasonably achievable to attain images of sufficient resolution adequate for diagnostic evaluation. CT/MRI/US Diagnostic Results #3: Imaging Test Ordered: CT L spine Impression Procedure: CT L Spine no Contrast Indications: Trauma, status post fall last night Technique: Spiral acquisitions obtained through the lumbar spine. Multiplanar reconstructions were generated. No IV contrast utilized. Total dose length product 1544 mGycm. CTDIvol(s) 25 mGy. Dose reduction achieved using automated exposure control Comparison: none Findings: Bony alignment is normal. Vertebral body heights are preserved. There is lower lumbar facet arthrosis. The disc spaces are preserved. Degenerative vacuum formation is seen at L5-S1. No acute fracture. No dislocation. No significant disc bulge or protrusion, spinal stenosis, or neural foraminal stenosis demonstrated. The included extraspinal soft tissues are unremarkable. There is evidence of prior hysterectomy. Impression: No acute bony trauma Mild degenerative changes, as described The CT scanner at [facility] is accredited by the [employer] and the scans are performed using protocols designed to limit radiation exposure to as low as reasonably achievable to attain images of sufficient resolution adequate for diagnostic evaluation. CT/MRI/US Diagnostic Results #4: Imaging Test Ordered: CT T spine Impression Procedure: CT T Spine no Contrast Indication: Trauma, status post fall last night Technique: Spiral acquisitions obtained through the thoracic spine. No IV contrast utilized. Multiplanar reconstructions were generated. Total dose length product 1544 mGycm. CTDIvol(s) 25 mGy. Dose reduction achieved using automated exposure control Comparison: none Findings: There is very slight loss of height of the anterior aspect of the C6 vertebral body. The remaining vertebral body heights are preserved. The bony alignment is normal. No definite acute fractures. No dislocations. There is multilevel degenerative disc narrowing, including the C5-6 and C6-7 discs. The included extraspinal soft tissues demonstrate atelectatic changes at the lung bases and possibly some scarring and bronchiectasis. There is evidence of prior left thyroidectomy. Impression: Slight loss of height of the anterior aspect of the C6 vertebral body. Suspect that this is on the basis of degenerative remodeling given the presence of surrounding degenerative disc disease, but mild acuity indeterminate compression fracture not completely excludable. Consider MRI for better characterization if this is considered clinically relevant. No acute bony trauma otherwise Degenerative changes as described Evidence of prior left thyroidectomy Basilar pulmonary atelectatic changes Last Vital Signs Date Time Temp Pulse Resp B/P (MAP) Pulse Ox O2 Delivery O2 Flow Rate FiO2 12/11/20 16:58 Room Air 12/11/20 14:09 98.4 87 18 151/95 (113) 97 Status: improved Disposition: HOME, SELF-CARE Condition: Stable Referrals: NON PHYSICIAN (PCP) [facility] Open 24 hour /7 days a week by Appointment Only [address] [facility] [address] [facility] [address] Patient Instructions: Head Injury, Adult, [id number], Back Injury Prevention, [id number] Kevin Bear MD Dec 11, 2020 20:47
--- NOTE | 2020-12-11 21:56 | Diagnostic Imaging Report ---
Indication: Right knee pain Technique: 3 views of the right knee Comparison: None Findings: No suprapatellar effusion. No acute fracture. No dislocation. There is a right knee prosthesis. No worrisome periprosthetic lucency demonstrated. Impression: No acute process
== END 2020-12-11 15:58 | disposition home or self-care (01) ==
LOC: EMR 14:30
DX: M54.6 Pain in thoracic spine (principal); S09.90XA Unspecified injury of head, initial encounter; F11.29 Opioid dependence with unspecified opioid-induced disorder; E66.9 Obesity, unspecified; I10 Essential (primary) hypertension; E11.9 Type 2 diabetes mellitus without complications; W18.12XA Fall from or off toilet with subsequent striking against object, initial encounter; Y92.9 Unspecified place or not applicable; M25.561 Pain in right knee; M25.512 Pain in left shoulder; Z88.8 Allergy status to other drugs, medicaments and biological substances; Z68.42 Body mass index [BMI] 45.0-49.9, adult
CPT/HCPCS: 70450; 70486; 72128; 72131; 99284

== ENCOUNTER 2020-12-13 11:09 | Emergency (ER) | payer MEDICAID ==
[~2020-12-13] VITALS: Ht 162.6 cm; Wt 122.5 kg
[2020-12-13 12:05] VITALS: BP 163/96
--- NOTE | 2020-12-13 12:21 | Emergency Room Report ---
History of Present Illness General Chief Complaint: Multiple Trauma/Fall Source: Patient, Medical Record Present Illness HPI Patient fell. She was evaluated here December 11. She has severe pain in her left chest at this time. In addition she has a bump under her chin and pain in her jaw. She was taking Tylenol No. 4 however the pain was severe. She was able to sleep last night only by taking prednisone. The patient is on Eliquis. 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 Evaluation on December 11 involved x-rays of her left shoulder, her right knee and a CT of the chin. This is the history: 60-year-old female presents for fall and injury. States that early this morning she fell while she was on the toilet because she falls asleep often. States that she hit her head and chin on the floor. Complaining of facial pain, back pain right knee and left shoulder pain. States she has had previous history of back problems. Pain is 10 out of 10, throbbing, nonradiating. No other aggravating relieving factors. Denies any other associated symptoms. This is the final assessment: CT show no acute process X-rays show no acute process Discussed the findings with the patient. Explained that her CT showed no bony injury. She stated that I should not have done a CT and I should have done an MRI. Explained that MRI is not the appropriate imaging modality for injury and trauma. X-ray would be more than sufficient even. Patient became very threatening aggressive and agitated. Was very abrasive to the nurse prior to my evaluation. On a review of EMR patient has been here multiple times and often is complaining and rude to nursing staff and has often requested continued pain meds. Cures shows extensive narcotic prescriptions Patient is requesting discharge at this time Diagnosis - back pain, head injury, opioid dependence Patient denies exposure to Covid positive contacts. No fevers, chills, sore throat, palpitations, nausea, vomiting, diarrhea, dysuria, abdominal pain, shortness of breath, depression, anxiety, visual changes, dizziness. Allergies: Coded Allergies: TRAMADOL (Verified Allergy, Unknown, 09/04/20) COVID-19 Screening Contact w/high risk pt: No Experienced COVID-19 symptoms?: No COVID-19 Testing performed SHIP PURSER: Yes COVID-19 Screening: Negative COVID-19 COVID-19 Testing Source: nasal Patient History Past Medical History: see triage record, old chart reviewed, other - DVT right brachial artery Past Surgical History: other - Right shoulder prosthesis Social History: Reports: smoking, drug use - Opiate dependence Social History Narrative Presented here via [employer] Reviewed Nursing Documentation: PMH: Agreed; PSxH: Agreed Nursing Documentation-PMH Hx Cardiac Problems: Yes - blood clot Hx Hypertension: Yes Hx Pacemaker: No Hx Asthma: Yes Hx COPD: No Hx Diabetes: Yes Hx Cerebrovascular Accident: No Review of Systems All Other Systems: negative except mentioned in HPI Physical Exam Vital Signs Date Time Temp Pulse Resp B/P (MAP) Pulse Ox O2 Delivery O2 Flow Rate FiO2 12/13/20 11:46 98.2 83 20 163/96 (118) 95 Room Air Sp02 EP Interpretation: reviewed, normal General Appearance: well appearing, no apparent distress, GCS 15, non-toxic Head: normocephalic, other - Bruise on her chin Eyes: bilateral eye normal inspection, bilateral eye PERRL, bilateral eye EOMI ENT: other - Wearing a mask Neck: full range of motion, supple, no bony tend Respiratory: lungs clear, normal breath sounds, other - Chest wall tenderness below breast left side no crepitance or deformity Cardiovascular #1: regular rate, rhythm Cardiovascular #2: 2+ radial (R) Gastrointestinal: normal inspection, normal bowel sounds, non tender, no mass, non-distended, overweight Genitourinary: no CVA tenderness Musculoskeletal: back normal, normal range of motion, gait/station normal, tender - Right knee and left shoulder Neurologic: alert, oriented x3, grossly normal Psychiatric: mood/affect normal Skin: warm/dry, Ecchymosis/Bruising - Chin Medical Decision Making Diagnostic Impression: Primary Impression: Multiple injuries due to trauma Additional Impressions: Fall Qualified Codes: W19.XXXD - Unspecified fall, subsequent encounter Contusion of rib Qualified Codes: S20.212A - Contusion of left front wall of thorax, initial encounter Contusion of jaw Qualified Codes: S00.83XA - Contusion of other part of head, initial encounter Knee contusion Qualified Codes: S80.01XD - Contusion of right knee, subsequent encounter Shoulder contusion Qualified Codes: S40.012D - Contusion of left shoulder, subsequent encounter ER Course Patient presents post fall and evaluation on December 11. She is complaining about left-sided chest pain and chin pain. Patient is at high risk as she is on Eliquis. Differential includes rib fracture, contusion, lung contusion, mandibular contusion, fracture amongst others. CT of the abdomen and chest and maxillofacial bones indicated. Patient treated with Percocet. Patient complaining of dyspnea and requesting oxygen. Oxygen saturation is normal at this time. Oxygen applied by the nurse. Patient c/o CP. EKG ordered. Call to Radiology for clarification of CT. No rib fractures. No mandibular fractures. Patient called to administration to complain about nursing. Nursing cement finishing supervisor discussed with patient. Patient abusive to nurse. EKG without cardiac injury or abnormality. Patient improved with treatment. Discussed findings with patient. Discussed outpatient observation and treatment. No medical emergency at this time. Patient stable for outpatient observation and treatment. EKG Diagnostic Results Rate: normal Rhythm: NSR ST Segments: no acute changes Rhythm Strip Diag. Results EP Interpretation: yes Rhythm: NSR, no PVC's, no ectopy CT/MRI/US Diagnostic Results CT/MRI/US Diagnostic Results #1: Imaging Test Ordered: Maxillofacial bones Impression NO CHANGE COMPARED TO PREVIOUS EXAM. NO EVIDENCE OF MAXILLOFACIAL FRACTURE. CT/MRI/US Diagnostic Results #2: Imaging Test Ordered: Chest abdomen and pelvis Impression DEPENDENT DENSITIES IDENTIFIED IN THE POSTERIOR LOWER LOBES BILATERALLY WHICH COULD BE DEPENDENT ATELECTASIS. EARLY DEVELOPING INFILTRATE CANNOT BE EXCLUDED. STATUS POST CHOLECYSTECTOMY. FATTY VENTRAL HERNIA IN THE SUPRAVESICAL REGION AND ALSO SMALL FATTY UMBILICAL HERNIA. Last Vital Signs Date Time Temp Pulse Resp B/P (MAP) Pulse Ox O2 Delivery O2 Flow Rate FiO2 12/13/20 12:05 98.2 20 163/96 95 Room Air 12/13/20 12:05 83 Status: improved Disposition: HOME, SELF-CARE Condition: Improved Scripts Hydrocodone/Acetaminophen 5-325* (HYDROCODONE/ACETAMINOPHEN 5-325*) 1 Each Tablet 1 TAB ORAL Q8H PRN for For Pain, #10 TAB 0 Refills Prov: Viraj Vance MD 12/13/20 Referrals: [facility],REFERRING (PCP) Viraj Vance MD Dec 13, 2020 12:21
[2020-12-13] MEDS ORDERED: oxyCODONE HCL/Acetaminophen 5/325mg ORAL ONE (12:30)
--- NOTE | 2020-12-13 13:17 | Diagnostic Imaging Report ---
EXAM: CT CT Chest Abdomen Pelvis wo Con INDICATION: Chest and abdominal pain. COMPARISON: 09/04/2020, 10/22/2016 TECHNIQUE: Axial images were obtained through the chest, abdomen and pelvis without intravenous contrast. Sagittal and coronal reformats are generated. All CT scans at this facility are performed using dose modulation techniques as appropriate to a performed exam including the following: automated exposure control with adjustment of the mA and/or kV according to patient size. RADIATION DOSE: CTDIvol: 22.1 mGy DLP: 1494.6 mGy-cm Dose information generated by the CT scanner is available in PACS. CHEST FINDINGS: There are dependent densities identified in the posterior aspect of both lower lobes likely atelectasis. Early developing infiltrates cannot be excluded. Upper lungs are relatively spared.. Cardiac and mediastinal structures are within normal limits. There is no pathologic size adenopathy. There is no effusion. Patient has a right orthopedic hardware with dense streak artifacts. Degenerative changes of the thoracic spine again noted. Multiple surgical clips identified in the left lower neck perhaps related to prior thyroid surgery. Please correlate clinically. ABDOMEN/PELVIS FINDINGS: The liver and spleen are homogeneous. Gallbladder is absent. The pancreas is unremarkable. Adrenals are normal in morphology. The kidneys are normal in size, shape and axis. Small bowel loops are nondistended. The colon is also nondistended with average amount of stool. The appendix is normal. There is no free fluid or free air. No pathologic adenopathy demonstrated. Urinary bladder appears unremarkable. There is a fatty ventral hernia at the midline in the supraumbilical region and also a small fatty hernia at the umbilicus. IMPRESSION: DEPENDENT DENSITIES IDENTIFIED IN THE POSTERIOR LOWER LOBES BILATERALLY WHICH COULD BE DEPENDENT ATELECTASIS. EARLY DEVELOPING INFILTRATE CANNOT BE EXCLUDED. STATUS POST CHOLECYSTECTOMY. FATTY VENTRAL HERNIA IN THE SUPRAVESICAL REGION AND ALSO SMALL FATTY UMBILICAL HERNIA.
--- NOTE | 2020-12-13 13:20 | Diagnostic Imaging Report ---
EXAM: CT CT Maxillofacial no Contrast CLINICAL HISTORY: Trauma with facial pain. TECHNIQUE: Axial images obtained through the face with subsequent sagittal and coronal reformat images. All CT scans at this facility are performed using dose modulation techniques as appropriate to a performed exam including the following: automated exposure control with adjustment of the mA and/or kV according to patient size. RADIATION DOSE: CTDIvol: 15.3 mGy DLP: 358.3 mGy-cm Dose information generated by the CT scanner is available in PACS. COMPARISON: None FINDINGS: Bony structures of the face appear intact. The orbits appear unremarkable. Postoperative changes of the left globe again noted. The zygomatic arches are intact. The pterygoid plates show normal configuration. Paranasal sinuses are unremarkable. The TMJs are congruent. Soft tissue of the face appears unremarkable. IMPRESSION: NO CHANGE COMPARED TO PREVIOUS EXAM. NO EVIDENCE OF MAXILLOFACIAL FRACTURE.
[2020-12-13] MEDS ORDERED: HYDROCODON-ACE1 EA15 ORAL (14:45)
== END 2020-12-13 15:18 | disposition home or self-care (01) ==
LOC: EMR 12:16
DX: S20.212D Contusion of left front wall of thorax, subsequent encounter (principal); S00.83XD Contusion of other part of head, subsequent encounter; S80.01XD Contusion of right knee, subsequent encounter; S40.012D Contusion of left shoulder, subsequent encounter; I11.9 Hypertensive heart disease without heart failure; E11.9 Type 2 diabetes mellitus without complications; J45.909 Unspecified asthma, uncomplicated; W17.89XD Other fall from one level to another, subsequent encounter; Z79.01 Long term (current) use of anticoagulants; Z88.5 Allergy status to narcotic agent; Z86.718 Personal history of other venous thrombosis and embolism; Z79.899 Other long term (current) drug therapy
CPT/HCPCS: 70486; 71250; 74176; 93005; Z7502; 99284